=== PATIENT | female | born 1995 | race African-American/Black ===

== ENCOUNTER 2016-07-25 23:44 | Emergency (ER) | payer MEDICAID ==
[~2016-07-25] VITALS: Ht 157.5 cm; Wt 68.0 kg
[2016-07-26 03:20] VITALS: BP 137/77
[2016-07-26] MEDS: IBUPROFEN 600MG TABLET PO NR (03:20)
== END 2016-07-26 03:58 | disposition home or self-care (01) ==
LOC: ER 23:45
DX: S52.501A Unspecified fracture of the lower end of right radius, initial encounter for closed fracture (principal); V43.62XA Car passenger injured in collision with other type car in traffic accident, initial encounter; Y92.488 Other paved roadways as the place of occurrence of the external cause
CPT/HCPCS: 29125; 73090; 73110; 81025; 99284

== ENCOUNTER 2018-06-24 02:57 | Emergency (ER) | payer MEDICAID ==
[~2018-06-24] VITALS: Ht 154.9 cm; Wt 93.0 kg
[2018-06-24 08:46] VITALS: BP 133/82
== END 2018-06-24 08:53 | disposition home or self-care (01) ==
LOC: ER 02:57
DX: H65.491 Other chronic nonsuppurative otitis media, right ear (principal)
CPT/HCPCS: 99283